=== PATIENT | male | born 1985 | race Caucasian/White ===

== ENCOUNTER 2020-05-25 09:29 | Day surgery (SDC) | payer OTHER ==
[~2020-05-25] VITALS: Ht 165.1 cm; Wt 83.0 kg
[2020-05-25] MEDS ORDERED: ADDERALL XR30 MG PO (09:41)
[2020-05-25] MEDS ORDERED: CYMBALTA 20MG20 MG PO (09:41)
[2020-05-25 09:54] VITALS: BP 117/79; PULSE 89; TEMP 97.4
[2020-05-25 11:03] VITALS: BP 117/78; PULSE 92
--- NOTE | 2020-05-25 11:03 | NUR ---
Pt to [facility] via cart. Pt drowsy, but awake. Pt ambulates to recliner with stand by assistance. Warm blanket provided. Sprite and pudding given per pt request. Will continue to monitor. Call light within reach.
[2020-05-25 11:15] VITALS: BP 101/76; PULSE 78
--- NOTE | 2020-05-25 11:15 | NUR ---
Pt continues to rest. Tolerating PO food and fluids without difficulties. Muffin and coffee given per pt request. Call light within reach.
[2020-05-25 11:30] VITALS: BP 111/78; PULSE 87
--- NOTE | 2020-05-25 11:30 | NUR ---
Pt continues to rest. Denies needs. Call light within reach.
[2020-05-25 11:45] VITALS: BP 99/65; PULSE 77
--- NOTE | 2020-05-25 11:45 | NUR ---
IV site discontinued with all parts intact. Discharge instructions reviewed. Pt voices understanding. Pt up to dress. Call light within reach.
--- NOTE | 2020-05-25 12:00 | NUR ---
Pt escorted to private car via wheel chair. Pt accompanied home by his friend.
== END 2020-05-25 12:00 | disposition home or self-care (01) ==
LOC: SDCO 09:29
DX: K57.30 Diverticulosis of large intestine without perforation or abscess without bleeding (principal); G47.33 Obstructive sleep apnea (adult) (pediatric); F17.210 Nicotine dependence, cigarettes, uncomplicated; F32.9 Major depressive disorder, single episode, unspecified
CPT/HCPCS: J2704; J7030